=== PATIENT | female | born 1995 | race Caucasian/White ===

== ENCOUNTER 2016-09-07 21:06 | Emergency (ER) | payer MEDICAID ==
[~2016-09-07] VITALS: Ht 160 cm; Wt 65.0 kg
[2016-09-07 21:48] LABS: BASOPHILS # (AUTO) 0.02 K/uL (0.00-0.20); BASOPHILS % (AUTO) 0.2 % (0.0-2.0); EOSINOPHILS # (AUTO) 0.18 K/uL (0.00-0.70); EOSINOPHILS % (AUTO) 1.58 % (1.0-6.0); HEMATOCRIT 39.6 % (36-46); HEMOGLOBIN 13.4 g/dL (12.0-16.0); LYMPHOCYTES # (AUTO) 2.6 K/uL (1.0-4.8); MEAN CORPUSCULAR HEMOGLOBIN 29.6 pg (26.0-34.0); MEAN CORPUSCULAR HGB CONC 33.8 G/dL (31.0-37.0); MEAN CORPUSCULAR VOLUME 88 fL (80-100); MONOCYTES # (AUTO) 1.1 K/uL (0.1-1.0); MONOCYTES % (AUTO) 9.4 % (2.0-9.0); NEUTROPHILS # (AUTO) 7.5 K/uL (1.8-7.7); NEUTROPHILS % (AUTO) 65.9 % (40.0-70.0); PLATELET COUNT (AUTO) 282 K/uL (150-450); RED BLOOD CELL COUNT(AUTO) 4.51 MIL/uL (4.00-5.20); RED CELL DISTRIBUTION WIDTH 11.7 % (11.5-14.5); WHITE BLOOD COUNT (AUTO) 11.3 K/uL (4.5-11.0)
[2016-09-07 22:01] LABS: ANION GAP 9 mmol/L (8-16); CALCIUM, TOTAL 9.1 mg/dL (8.8-10.5); CARBON DIOXIDE 26 mmol/L (22-29); CHLORIDE 101 mmol/L (98-107); CREATININE 0.98 mg/dL (0.60-1.30); GLOMERULAR FILTR. RATE CALC > 60 mL/min (>60); POTASSIUM 3.5 mmol/L (3.5-5.1); SODIUM SERUM 136 mmol/L (136-145); UREA NITROGEN, BLOOD 12 mg/dL (7-18)
[2016-09-07 22:29] LABS: ALANINE AMINOTRANSFERASE 28 U/L (12-78); ALBUMIN 3.8 g/dL (3.4-5.0); ASPARTATE AMINOTRANSFERASE 17 U/L (15-37); BILIRUBIN,TOTAL 0.2 mg/dL (0.1-1.0); TOTAL PROTEIN, SERUM 7.4 g/dL (6.4-8.2)
[2016-09-07 23:19] LABS: APPEARANCE,URINE CLEAR (CLEAR); GLUCOSE, URINE (UA) NEGATIVE (NEGATIVE); KETONES,URINE NEGATIVE (NEGATIVE); LEUKOCYTE ESTERASE ,URINE NEGATIVE (NEGATIVE); OCCULT BLOOD,URINE SMALL (NEGATIVE); PH,URINE 6.5 (5.0-8.0); PROTEIN,URINE NEGATIVE (NEGATIVE)
[2016-09-07 23:28] LABS: ADD UA MICROSCOPIC YES
[2016-09-07 23:31] LABS: SQUAMOUS EPITHELIAL CELL,UR Rare /LPF (None Seen); WBC,URINE None Seen /HPF (0-5)
[2016-09-08 01:57] VITALS: BP 120/60
[2016-09-08 02:18] VITALS: BP 119/60
== END 2016-09-08 02:19 | disposition home or self-care (01) ==
LOC: EMS 21:08
DX: O20.0 Threatened abortion (principal); Z3A.01 Less than 8 weeks gestation of pregnancy
CPT/HCPCS: 36415; 36430; 76801; 76817; 80053; 81001; 84702; 85025; 86900; 86901; 99285; J2788

== ENCOUNTER 2017-01-09 08:13 | Observation (INO) | payer MEDICAID ==
[~2017-01-09] VITALS: Ht 161.3 cm; Wt 72.5 kg
[2017-01-09] MEDS ORDERED: PREN-18 PO (08:30)
[2017-01-09] MEDS ORDERED: BACTDSB PO (08:30)
[2017-01-09] MEDS ORDERED: CHOL500051 PO (08:30)
[2017-01-09 08:51] VITALS: BP 112/58
[2017-01-09] MEDS ORDERED: LIDOCAINE HCL/PF 1% 2 ML VIAL IM ONE (09:45)
[2017-01-09] MEDS ORDERED: CefTRIAXone SODIUM 1 GM/VIAL IM ONE (09:45)
[2017-01-09 11:09] LABS: APPEARANCE,URINE CLEAR (CLEAR); GLUCOSE, URINE (UA) NEGATIVE (NEGATIVE); KETONES,URINE NEGATIVE (NEGATIVE); LEUKOCYTE ESTERASE ,URINE NEGATIVE (NEGATIVE); OCCULT BLOOD,URINE NEGATIVE (NEGATIVE); PH,URINE 7.5 (5.0-8.0); PROTEIN,URINE NEGATIVE (NEGATIVE)
[2017-01-09 11:13] LABS: ADD UA MICROSCOPIC NO
== END 2017-01-09 10:35 | disposition home or self-care (01) ==
LOC: EMS 08:16 → INTOOBSV 08:35 → 4S 08:35
PROVIDERS: ADMIT Obstetrics & Gynecology; ATTEND Obstetrics & Gynecology
DX: O26.892 Other specified pregnancy related conditions, second trimester (principal); R10.32 Left lower quadrant pain; O23.12 Infections of bladder in pregnancy, second trimester; O99.512 Diseases of the respiratory system complicating pregnancy, second trimester; R05 Cough; Z3A.24 24 weeks gestation of pregnancy; Z86.73 Personal history of transient ischemic attack (TIA), and cerebral infarction without residual deficits
CPT/HCPCS: 59025; 81003; 96372; 99284; G0378; J0696; J3490

== ENCOUNTER 2017-04-05 12:26 | Observation (INO) | payer MEDICAID ==
[~2017-04-05] VITALS: Ht 160 cm; Wt 80.7 kg
[~2017-04-05 12:26] MED LIST: BACTDSB PO; CHOL500051 PO; PREN-18 PO
[2017-04-05 14:19] VITALS: BP 102/59
== END 2017-04-05 15:37 | disposition home or self-care (01) ==
LOC: 4S 12:26
PROVIDERS: ADMIT Obstetrics & Gynecology; ATTEND Obstetrics & Gynecology
DX: O26.893 Other specified pregnancy related conditions, third trimester (principal); N89.8 Other specified noninflammatory disorders of vagina; Z3A.35 35 weeks gestation of pregnancy
CPT/HCPCS: 36415; 59025; 89060; G0378

== ENCOUNTER 2017-04-05 16:20 | Inpatient (IN) | payer MEDICAID ==
[~2017-04-05] VITALS: Ht 160 cm; Wt 82.1 kg
[2017-04-29 11:45] VITALS: BP 129/61
[2017-04-29] MEDS ORDERED: RINGERS SOLUTION,LACTATED 1,000 ML IV PRN (15:15)
[2017-04-29] MEDS ORDERED: CITRIC ACID/SODIUM CITRATE 30 ML SOLUTION UDCUP PO PRN (15:15)
[2017-04-29] MEDS ORDERED: METOCLOPRAMIDE HCL 5 MG/ML 2 ML VIAL IVP PRN (15:15)
[2017-04-29] MEDS ORDERED: AMPICILLIN SODIUM 2 GM/NS 100 ML IV ONE ×2 (15:25→15:45)
[2017-04-29] MEDS ORDERED: OXYTOCIN 30 UNITS/LACT RINGERS 500 ML IV PRN (15:31)
[2017-04-29] MEDS: RINGERS SOLUTION,LACTATED 1,000 ML IV SCH ×2 (15:41→22:34)
[2017-04-29] MEDS ORDERED: FentaNYL CITRATE-PF 100 MCG/2 ML VIAL IVP PRN (15:45)
[2017-04-29] MEDS ORDERED: MISOPROSTOL 25 MCG TABLET PR ONE (15:45)
[2017-04-29 16:13] LABS: BASOPHILS # (AUTO) 0.02 K/uL (0.00-0.20); BASOPHILS % (AUTO) 0.3 % (0.0-2.0); EOSINOPHILS # (AUTO) 0.05 K/uL (0.00-0.70); EOSINOPHILS % (AUTO) 0.51 % (1.0-6.0); HEMOGLOBIN 12.2 g/dL (12.0-16.0); LYMPHOCYTES # (AUTO) 1.8 K/uL (1.0-4.8); LYMPHOCYTES % (AUTO) 18.7 % (22.0-44.0); MEAN CORPUSCULAR HEMOGLOBIN 31.6 pg (26.0-34.0); MEAN CORPUSCULAR HGB CONC 34.7 G/dL (31.0-37.0); MEAN CORPUSCULAR VOLUME 91 fL (80-100); MONOCYTES # (AUTO) 0.7 K/uL (0.1-1.0); MONOCYTES % (AUTO) 7.7 % (2.0-9.0); NEUTROPHILS % (AUTO) 72.8 % (40.0-70.0); RED BLOOD CELL COUNT(AUTO) 3.85 MIL/uL (4.00-5.20); WHITE BLOOD COUNT (AUTO) 9.6 K/uL (4.5-11.0)
[2017-04-29] MEDS ORDERED: OXYGEN THERAPY IH SCH (20:00)
[2017-04-29] MEDS: AMPICILLIN SODIUM 1 GM/NS 50 ML IV SCH (20:11)
[2017-04-29] MEDS ORDERED: LIDOCAINE HCL/PF 2% 5 ML VIAL ONE (21:18)
[2017-04-29] MEDS ORDERED: BUPIVACAINE HCL/PF 0.25% 10 ML VIAL ONE (21:18)
[2017-04-29] MEDS ORDERED: LIDOCAINE HCL/PF 1% 30 ML VIAL ONE (21:19)
[2017-04-29] MEDS ORDERED: FentaNYL/BUPIV 0.125%/NS/PF 200 ML ED ONE (21:19)
[2017-04-29] MEDS ORDERED: FentaNYL/BUPIV 0.125%/NS/PF 200 ML ED PRN (22:04)
[2017-04-29] MEDS ORDERED: DiphenhydrAMINE HCL 50 MG/ML VIAL IVP PRN (22:15)
[2017-04-29] MEDS ORDERED: PROMETHAZINE HCL 12.5 MG in SODIUM CHLORIDE 0.9% 50 ML IV PRN (22:15)
[2017-04-29] MEDS ORDERED: ONDANSETRON HCL 4 MG/2 ML VIAL IVP PRN (22:15)
[2017-04-29] MEDS ORDERED: NALBUPHINE HCL 10 MG/ML VIAL IVP PRN ×2 (22:15)
[2017-04-30] MEDS: AMPICILLIN SODIUM 1 GM/NS 50 ML IV SCH ×2 (00:10→04:45)
[2017-04-30] MEDS ORDERED: RINGERS SOLUTION,LACTATED 1,000 ML IV ONE (09:43)
[2017-04-30] MEDS ORDERED: LANOLIN 7 GM OINTMENT TP PRN (09:45)
[2017-04-30] MEDS ORDERED: MEASLES/MUMPS/RUBELLA VACCINE, LIVE 0.5 ML/VIAL SQ ONE (09:45)
[2017-04-30] MEDS ORDERED: GLYCERIN/WITCH HAZEL LEAF 40 PADS JAR TP PRN (09:45)
[2017-04-30] MEDS ORDERED: BENZOCAINE 20%/MENTHOL 56 GM SPRAY CANISTER TP PRN (09:45)
[2017-04-30] MEDS ORDERED: OxyCODONE HCL/ACETAMINOPHEN 5-325 MG TABLET PO PRN (09:45)
[2017-04-30] MEDS: IBUPROFEN 600 MG TABLET PO PRN ×2 (13:56→20:08)
[2017-04-30 19:04] VITALS: BP 110/63
[2017-04-30] MEDS: OxyCODONE HCL/ACETAMINOPHEN 5-325 MG TABLET PO PRN (20:08)
[2017-04-30] MEDS ORDERED: MAGNESIUM HYDROXIDE SUSPENSION 30 ML UDCUP PO SCH (21:00)
[2017-05-01] MEDS: OxyCODONE HCL/ACETAMINOPHEN 5-325 MG TABLET PO PRN (06:41)
[2017-05-01] MEDS: IBUPROFEN 600 MG TABLET PO PRN (06:41)
[2017-05-01] MEDS ORDERED: IBUP-2070 PO (10:12)
[2017-05-01] MEDS ORDERED: DSS100 PO (10:12)
== END 2017-05-01 12:40 | disposition home or self-care (01) | DRG 560 ==
LOC: 4S 04-29 11:15 → OBSVTOIN 04-29 14:05
PROVIDERS: ADMIT Obstetrics & Gynecology; ATTEND Obstetrics & Gynecology
PROC: 10E0XZZ Delivery of Products of Conception, External Approach (ICD-10-PCS; principal; 2017-04-30)
PROC: 00HU33Z Insertion of Infusion Device into Spinal Canal, Percutaneous Approach (ICD-10-PCS; 2017-04-30)
PROC: 30233S1 Transfusion of Nonautologous Globulin into Peripheral Vein, Percutaneous Approach (ICD-10-PCS; 2017-04-30)
DX: O69.81X0 Labor and delivery complicated by cord around neck, without compression, not applicable or unspecified (principal); Z37.0 Single live birth; Z3A.39 39 weeks gestation of pregnancy
CPT/HCPCS: 85461; 86850; 86870; 86900; 86901; J0290; J2405; J2590; J3490; J7120

== ENCOUNTER 2018-07-07 08:54 | Emergency (ER) | payer MEDICAID, OTHER ==
[~2018-07-07] VITALS: Ht 160 cm; Wt 62.3 kg
[~2018-07-07 08:54] MED LIST changes: -BACTDSB PO; -CHOL500051 PO; +DSS100 PO; +IBUP-2070 PO; -PREN-18 PO
[2018-07-07] MEDS ORDERED: CefTRIAXone SODIUM 1 GM/VIAL IM ONE (11:00)
[2018-07-07] MEDS ORDERED: AZITHROMYCIN 250 MG TABLET PO ONE (11:00)
[2018-07-07] MEDS ORDERED: LIDOCAINE/PF 1% 2 ML VIAL IM ONE (11:00)
[2018-07-07 11:17] VITALS: BP 127/69
== END 2018-07-07 11:24 | disposition home or self-care (01) ==
LOC: EMS 08:55
DX: N89.8 Other specified noninflammatory disorders of vagina (principal); R10.2 Pelvic and perineal pain
CPT/HCPCS: 81002; 81025; 96372; 99283; J0696; J3490